=== PATIENT | female | born 1945 | race Caucasian/White ===

== ENCOUNTER 2019-08-24 05:46 | Inpatient (IN) ==
[2019-08-17 13:42] LABS: Basophils # 0.1 10*3/uL (0.0-0.2); Basophils % 1.4 % (0.0-0.8); Eosinophils # 0.1 10*3/uL (0.0-0.87); Eosinophils % 3.2 % (0.00-10.9); Hematocrit 40.5 VOL% (35.7-47.0); Hemoglobin 13.4 GM/DL (12.0-16.0); Immature Granulocytes % 0.2 %; Immature Granulocytes Absolute 0.01 #; Lymphocytes # 2.3 10*3/uL (1.4-4.0); Lymphocytes % 52.7 % (21.3-54.2); Mean Corpuscular HGB Conc 33.1 GM/DL (32-36); Mean Platelet Volume 9.2 FL (9.6-12.0); Monocytes % 11.1 % (1.7-12.7); Neutrophils % 31.4 % (38.7-73.9); Platelet Count 189 T/CUMM (130-400); Red Blood Count 4.31 MC/CUMM (3.8-5.5); Red Cell Distribution Width 13.2 % (9.3-17.3); White Blood Count 4.3 T/CUMM (4-12)
[2019-08-17 14:03] LABS: Alanine Aminotransferase 35 U/L (13-56); Albumin 3.7 G/DL (3.4-5.0); Alkaline Phosphatase 89 U/L (45-117); Aspartate Amino Transferase 30 U/L (0-37); Bilirubin,Total < 0.39 MG/DL (0.2-1.0); Blood Urea Nitrogen 11 MG/DL (7-18); Calcium 9.5 MG/DL (8.5-10.1); Estimated Glom Filtration Rate 69 ML/MIN; Glucose 88 MG/DL (74-106); Osmolality,Calculated 255.9 MOS/KG (273-304); Total Protein 7.8 G/DL (6.4-8.3)
[2019-08-17 14:10] LABS: PT Patient Result 10.7 SECS (9.6-12.2); Partial Thromboplastin Time 25.9 SECS (20.8-36.0)
[2019-08-17 14:11] LABS: Apearance,Urine CLEAR (Clear); Bacteria,Urine Occasional /HPF (Few); Bilirubin,Urine Negative (Negative); Blood, Urine Small mg/dL (Negative); Glucose,Urine (UA) Negative (Negative); Hyaline Casts,Urine 6 /LPF (0-3); Ketones,Urine 5 mg/dL (Negative); Mucus,Urine Occasional /LPF (Occasional); Nitrite,Urine Positive (Negative); Protein,Urine Negative; RBC,Urine 2 /HPF (0-4); Squamous Epithelial Cell,Urine Occasional /HPF (0-10); Urine Color Yellow (Yellow); Urine Specific Gravity 1.009 (1.001-1.035); Urine Urobilinogen < 2.0 EU/DL (0.2-1.0); WBC,Urine 27 /HPF (0-6)
[2019-08-17 15:19] LABS: Anisocytosis Slight; Eosinophils 3 % (0-10); Lymphocytes 60 % (20-55); Microcytosis Slight; Platelet Estimate Adequate; Segmented Neutrophils 24 % (50-85); Total Cells Counted 100
[2019-08-24] MEDS ORDERED: VANCOMYCIN INJ 1,000 MG in SODIUM CHLORIDE 0.9% 250 ML IV ONE (06:30)
[2019-08-24] MEDS ORDERED: ceFAZolin 1,000 MG in SYRINGE 1 EACH IV ONE (06:30)
[2019-08-24] MEDS ORDERED: ceFAZolin 1,000 MG VIAL ONE ×2 (08:26→08:27)
[2019-08-24] MEDS ORDERED: TAMSULOSIN 0.4 MG CAPSULE PO ONE (08:28)
[2019-08-24] MEDS ORDERED: PANTOPRAZOLE 40 MG TABLET PO ONE (09:05)
[2019-08-24] MEDS ORDERED: DIAZEPAM 2 MG TABLET PO ONE (09:05)
[2019-08-24] MEDS ORDERED: GABAPENTIN 400 MG CAPSULE PO ONE (09:05)
[2019-08-24] MEDS ORDERED: ACETAMINOPHEN 500 MG TABLET PO ONE (09:05)
[2019-08-24 09:53] LABS: Alanine Aminotransferase 34 U/L (13-56); Alkaline Phosphatase 83 U/L (45-117); Aspartate Amino Transferase 25 U/L (0-37); Bilirubin,Total < 0.39 MG/DL (0.2-1.0); Blood Urea Nitrogen 8 MG/DL (7-18); Estimated Glom Filtration Rate 73 ML/MIN; Glucose 88 MG/DL (74-106); Osmolality,Calculated 269.8 MOS/KG (273-304); Total Protein 6.5 G/DL (6.4-8.3)
[2019-08-24] MEDS ORDERED: DEXMEDETOMIDINE 200 MCG/2 ML VIAL ONE (10:02)
[2019-08-24] MEDS ORDERED: EPINEPHrine 1 MG/ML VIAL ONE (10:21)
[2019-08-24] MEDS ORDERED: BUPIVACAINE MPF 0.25% 30 ML VIAL ONE (10:21)
[2019-08-24] MEDS ORDERED: DEXAMETHASONE 4 MG/1 ML VIAL ONE (10:22)
[2019-08-24] MEDS ORDERED: BUPIVACAINE MPF 0.5% /EPI 30 ML VIAL ONE (10:24)
[2019-08-24] MEDS ORDERED: BACITRACIN OINT 0.9 GM PACK TOP ONE (11:01)
[2019-08-24] MEDS ORDERED: MORPHINE 4 MG/1 ML VIAL IV PRN ×2 (11:24)
[2019-08-24] MEDS ORDERED: ZALEPLON 5 MG CAPSULE PO PRN (11:24)
[2019-08-24] MEDS ORDERED: oxyCODONE IR 5 MG TABLET PO PRN (11:24)
[2019-08-24] MEDS ORDERED: ONDANSETRON 4 MG/2 ML VIAL IV PRN (11:24)
[2019-08-24] MEDS ORDERED: BUPIVACAINE 0.5% 50 ML VIAL ONE (11:42)
[2019-08-24] MEDS ORDERED: BUPIVACAINE SPINAL 0.75% 2 ML AMP SPINAL ONE (11:53)
[2019-08-24] MEDS ORDERED: fentaNYL 100 MCG/2 ML VIAL ONE (11:54)
[2019-08-24] MEDS ORDERED: ePHEDrine 50 MG/ML AMP ONE (11:55)
[2019-08-24] MEDS ORDERED: LACTATED RINGERS 1,000 ML IV ONE (11:55)
[2019-08-24] MEDS ORDERED: TRANEXAMIC ACID 1,000 MG/10 ML VIAL ONE (11:55)
[2019-08-24] MEDS: LACTATED RINGERS 1,000 ML IV SCH ×3 (12:45→23:44)
[2019-08-24] MEDS: KETOROLAC 15 MG/1 ML VIAL IV SCH ×2 (13:36→20:37)
[2019-08-24] MEDS ORDERED: TUBERCULIN SKIN TEST 0.1 ML SYRINGE INTRADERM ONE (15:27)
[2019-08-24] MEDS: diphenhydrAMINE CAP 25 MG CAPSULE PO PRN ×2 (16:58→23:43)
[2019-08-24] MEDS: ceFAZolin 1,000 MG in SYRINGE 1 EACH IV SCH ×2 (16:58→23:43)
[2019-08-24] MEDS: PRIMIDONE 50 MG TABLET PO SCH (20:37)
[2019-08-24] MEDS: MEMANTINE 10 MG TABLET PO SCH (20:37)
[2019-08-24] MEDS: DONEPEZIL 10 MG TABLET PO SCH (20:37)
[2019-08-24] MEDS: SIMVASTATIN 10 MG TABLET PO SCH (20:37)
[2019-08-25] MEDS: KETOROLAC 15 MG/1 ML VIAL IV SCH ×2 (02:59→08:59)
[2019-08-25] MEDS: LACTATED RINGERS 1,000 ML IV SCH (03:30)
[2019-08-25 05:31] LABS: Basophils % 0.2 % (0.0-0.8); Eosinophils % 0.2 % (0.00-10.9); Hematocrit 29.6 VOL% (35.7-47.0); Hemoglobin 9.6 GM/DL (12.0-16.0); Immature Granulocytes % 0.4 %; Immature Granulocytes Absolute 0.02 #; Mean Corpuscular HGB Conc 32.4 GM/DL (32-36); Mean Corpuscular Volume 94.9 FL (87-102); Mean Platelet Volume 9.4 FL (9.6-12.0); Monocytes % 9.9 % (1.7-12.7); Neutrophils % 68.3 % (38.7-73.9); Platelet Count 143 T/CUMM (130-400); Red Blood Count 3.12 MC/CUMM (3.8-5.5); Red Cell Distribution Width 13.2 % (9.3-17.3)
[2019-08-25] MEDS: FONDAPARINUX 2.5 MG/0.5 ML SYRINGE SUBCUT SCH (05:32)
[2019-08-25 05:54] LABS: Calcium 8.7 MG/DL (8.5-10.1); Osmolality,Calculated 266.2 MOS/KG (273-304)
[2019-08-25 05:56] LABS: Troponin I < 0.015 NG/ML (0.00-0.045)
[2019-08-25] MEDS: LOSARTAN 50 MG TABLET PO SCH (08:57)
[2019-08-25] MEDS: amLODIPine 10 MG TABLET PO SCH (08:57)
[2019-08-25] MEDS: DOCUSATE SODIUM 100 MG CAPSULE PO SCH (08:57)
[2019-08-25] MEDS: MULTIVITAMIN (CENTRUM) TABLET PO SCH (08:57)
[2019-08-25] MEDS: MEMANTINE 10 MG TABLET PO SCH ×2 (08:58→20:54)
[2019-08-25] MEDS: METOPROLOL SUCCINATE XL 50 MG TABLET PO SCH (08:58)
[2019-08-25] MEDS: PARoxetine 20 MG TABLET PO SCH (08:58)
[2019-08-25] MEDS: MAGNESIUM HYDROXIDE SUSP 30 ML UDCUP PO PRN (10:35)
[2019-08-25] MEDS: DONEPEZIL 10 MG TABLET PO SCH (20:54)
[2019-08-25] MEDS: SIMVASTATIN 10 MG TABLET PO SCH (20:55)
[2019-08-25] MEDS: PRIMIDONE 50 MG TABLET PO SCH (20:55)
[2019-08-26] MEDS: oxyCODONE IR 5 MG TABLET PO PRN ×3 (00:38→16:51)
[2019-08-26 05:49] LABS: Basophils # 0.1 10*3/uL (0.0-0.2); Basophils % 0.9 % (0.0-0.8); Eosinophils # 0.4 10*3/uL (0.0-0.87); Hematocrit 33.7 VOL% (35.7-47.0); Hemoglobin 10.7 GM/DL (12.0-16.0); Immature Granulocytes % 0.3 %; Immature Granulocytes Absolute 0.02 #; Lymphocytes # 1.9 10*3/uL (1.4-4.0); Lymphocytes % 32.6 % (21.3-54.2); Mean Corpuscular HGB Conc 31.8 GM/DL (32-36); Mean Corpuscular Volume 96.8 FL (87-102); Mean Platelet Volume 9.1 FL (9.6-12.0); Monocytes % 9.9 % (1.7-12.7); Neutrophils % 50.3 % (38.7-73.9); Platelet Count 148 T/CUMM (130-400); Red Blood Count 3.48 MC/CUMM (3.8-5.5); Red Cell Distribution Width 13.6 % (9.3-17.3); White Blood Count 5.9 T/CUMM (4-12)
[2019-08-26] MEDS: FONDAPARINUX 2.5 MG/0.5 ML SYRINGE SUBCUT SCH (06:05)
[2019-08-26] MEDS: amLODIPine 10 MG TABLET PO SCH (08:04)
[2019-08-26] MEDS: LOSARTAN 50 MG TABLET PO SCH (08:04)
[2019-08-26] MEDS: MULTIVITAMIN (CENTRUM) TABLET PO SCH (08:04)
[2019-08-26] MEDS: PARoxetine 20 MG TABLET PO SCH (08:04)
[2019-08-26] MEDS: METOPROLOL SUCCINATE XL 50 MG TABLET PO SCH (08:04)
[2019-08-26] MEDS: DOCUSATE SODIUM 100 MG CAPSULE PO SCH (08:04)
[2019-08-26] MEDS: MEMANTINE 10 MG TABLET PO SCH ×2 (08:05→20:17)
[2019-08-26] MEDS: MAGNESIUM HYDROXIDE SUSP 30 ML UDCUP PO PRN (12:29)
[2019-08-26] MEDS: SIMVASTATIN 10 MG TABLET PO SCH (20:16)
[2019-08-26] MEDS: DONEPEZIL 10 MG TABLET PO SCH (20:16)
[2019-08-26] MEDS: PRIMIDONE 50 MG TABLET PO SCH (20:17)
[2019-08-27 05:43] LABS: Basophils % 0.8 % (0.0-0.8); Eosinophils # 0.3 10*3/uL (0.0-0.87); Eosinophils % 6.8 % (0.00-10.9); Hematocrit 28.9 VOL% (35.7-47.0); Hemoglobin 9.2 GM/DL (12.0-16.0); Lymphocytes # 1.6 10*3/uL (1.4-4.0); Lymphocytes % 39.9 % (21.3-54.2); Mean Corpuscular HGB Conc 31.8 GM/DL (32-36); Mean Corpuscular Volume 96.3 FL (87-102); Mean Platelet Volume 9.1 FL (9.6-12.0); Monocytes % 8.8 % (1.7-12.7); Neutrophils % 43.7 % (38.7-73.9); Platelet Count 145 T/CUMM (130-400); Red Cell Distribution Width 13.4 % (9.3-17.3)
[2019-08-27] MEDS: FONDAPARINUX 2.5 MG/0.5 ML SYRINGE SUBCUT SCH (06:09)
[2019-08-27 07:51] VITALS: BP 172/84
[2019-08-27] MEDS: MEMANTINE 10 MG TABLET PO SCH (08:36)
[2019-08-27] MEDS: DOCUSATE SODIUM 100 MG CAPSULE PO SCH (08:36)
[2019-08-27] MEDS: PARoxetine 20 MG TABLET PO SCH (08:36)
[2019-08-27] MEDS: MULTIVITAMIN (CENTRUM) TABLET PO SCH (08:36)
[2019-08-27] MEDS: METOPROLOL SUCCINATE XL 50 MG TABLET PO SCH (08:36)
[2019-08-27] MEDS: amLODIPine 10 MG TABLET PO SCH (08:37)
[2019-08-27] MEDS: LOSARTAN 50 MG TABLET PO SCH (08:37)
[2019-08-27] MEDS: MAGNESIUM HYDROXIDE SUSP 30 ML UDCUP PO PRN (08:37)
[2019-08-27] MEDS ORDERED: SULFAMETHOX/TRIMETHOPRIM 800-160 MG TABLET PO SCH (09:00)
[2019-08-27 10:47] LABS: Apearance,Urine CLEAR (Clear); Bilirubin,Urine Negative (Negative); Blood, Urine Negative (Negative); Glucose,Urine (UA) Negative (Negative); Ketones,Urine Negative (Negative); Nitrite,Urine Negative (Negative); Protein,Urine Negative; RBC,Urine 6 /HPF (0-4); Squamous Epithelial Cell,Urine Occasional /HPF (0-10); Urine Color Yellow (Yellow); Urine Specific Gravity 1.012 (1.001-1.035); Urine Urobilinogen < 2.0 EU/DL (0.2-1.0); WBC,Urine 1 /HPF (0-6)
== END 2019-08-27 11:23 | DRG 470 ==
LOC: N.PREADM 05:46 → N.SDSINP 05:47 → N.3E 12:54
PROVIDERS: ADMIT Orthopaedic Surgery; ATTEND Orthopaedic Surgery